=== PATIENT | female | born 1975 | race Caucasian/White ===

== ENCOUNTER → 2023-07-11 11:29 | Outpatient (REF) | payer OTHER, SELFPAY | LOC: WDC 11:29 | PROVIDERS: ATTENDING PHYSICIAN Obstetrics & Gynecology; FAMILY PHYSICIAN Family Medicine | DX: Z12.31 Encounter for screening mammogram for malignant neoplasm of breast (principal) | CPT/HCPCS: 77063; 77067 ==

== ENCOUNTER 2023-07-30 13:56 | Emergency (ER) | payer OTHER, SELFPAY ==
[2023-07-30 14:01] VITALS: BP 159/118
--- NOTE | 2023-07-30 14:03 | ED.PDOC.TR ---
ED Provider Triage
-
Patient seen by provider in Triage?: Seen in Triage
Pt was assessed in triage as a rapid assessment to expedite ongoing care with expectation of further assessment.
48-year-old female presenting to the emergency department with concerns of low back pain with a tingling in intermittent numb sensation throughout the low back without significant radiation no changes in urination or bowel movements. No similar
symptoms in the past no specific injuries. Here symptoms not reproducible no CVA tenderness no abdominal pain patient generally well-appearing does seem to be very careful with her movements protecting her back. Seems to be most likely mechanical
type back pain has not had imaging of her back in the past x-ray was ordered as well as urinalysis.
[2023-07-30 15:09] LABS: Urine Albumin Negative (Neg - Trace); Urine Bilirubin Negative (Negative); Urine Character Clear (Clear); Urine Color Yellow; Urine Glucose Negative (Negative); Urine Ketone Negative (Negative); Urine Leukocyte Negative (Negative); Urine Nitrite Negative (Negative); Urine Occult Blood Negative (Negative); Urine Specific Gravity 1.015 (<1.030); Urine Urobilinogen Negative (Neg - 1+)
[2023-07-30 15:13] LABS: HCG, Urine Qualitative Screen Negative
--- NOTE | 2023-07-30 18:24 | ED.GENMED ---
History of Present Illness
General
Chief Complaint: Back Pain
Source: patient
Exam Limitations: none
Time Seen by Provider: 07/30/23 17:59
Travel History
Have you had any contact with someone who has COVID-19?: No
Do you have any symptoms of coronavirus? Fever > 100 degrees, chills, cough, shortness of breath, sore throat, loss of taste or smell, muscle aches, or headache?: No
History of Present Illness
History of Present Illness:
This is a 48 year old female that comes in with multiple complaints. States that about a week ago she started pins and needles in the mid and lower back. States that if she stands to long it gets worse and she gets hot. If she sits to long the pain
is again also worse. States that she has felt SOB, has upper abd pain for a couple of weeks and a headache. Denies any falls or injury. Denies any fever, chills, chest pain, nausea, vomiting, diarrhea, dizziness, urinary burning.
Past History
Past History
ED Past Medical History: HTN and Psychiatric (Anxiety)
ED Past Surgical History: Cholecystectomy and Other (Hernia repair. Breast implants)
Social History
Tobacco: Non-smoker
Alcohol: Occasional
Personal:
Living: with family
Review of Systems
Review of Systems
All Other Systems: ROS reviewed and negative except as documented in HPI and ROS
Constitutional: Reports no symptoms; Denies fever or chills
EENT: Reports no symptoms
Respiratory: Reports trouble breathing; Denies cough
Cardiac: Reports no symptoms; Denies chest pain
ABD/GI: Reports abdominal pain; Denies nausea, vomiting or diarrhea
: Reports no symptoms; Denies dysuria, frequency or urgency
Musculoskeletal: Reports no symptoms
Skin: Reports no symptoms
Neurological: Reports headache; Denies dizzy
Psychiatric: Reports no symptoms
Phy Exam
General Physical Exam
General Presentation: no apparent distress
General age: appears stated age
General Skin: warm and dry
General Habitus: normal
General Mental: alert
General Hydration: appears well hydrated
ENT Exam
ENT Exam: TM's normal, pharynx normal and neck supple
Eye Exam
Eye Exam: EOMI
Cardiovascular Exam
Cardiovascular Exam: regular rate/rhythm, no edema, no murmur and normal peripheral pulses
Pulmonary Exam
Pulmonary Exam: lungs clear, no respiratory distress, no rales, chest non tender, no crackles, no rhonchi, no wheezing and no cough
Gastrointestinal Exam
Gastrointestinal Exam: normal bowel sounds, soft, no organomegaly, no pulsatile mass, non distended and tender (Right upper and slight lower abd tenderness with palpation)
Musculoskeletal Exam
Musculoskeletal Exam: full ROM, no edema and other (Negative for any cervical neck tenderness. Negative for spinal tenderness with right lateral discomofort. Negative with straight leg raise, going up on her toes or bending forward. Discomfort with
turning to the sided into the right hip. )
Skin Exam
Skin Exam: normal color, warm/dry, no rash and no petechia
Psychiatric Exam
Psychiatric Exam: normal mood/affect
Course
Orders/Labs/Results
Orders:
Orders
07/30/23 14:06
Lumbar Spine, 2 or 3 View [CR Lumbar Spine 2 Or 3 Views] Urgent
Comment:
Reason For Exam: low back pain
07/30/23 14:07
Test Result ONCE
07/30/23 15:02
HCG, Urine Qualitative Screen Urgent
Date Specimen was Collected: 07/30/23
Time Specimen was Collected: 15:01
Urinalysis Reflex To Culture Urgent
Date Specimen was Collected: 07/30/23
Time Specimen was Collected: 15:02
07/30/23 18:22
US Abdomen Complete/Upper Urgent
Comment:
Reason For Exam: Right upper abd tenderness
07/30/23 18:23
Electrocardiogram (*1) Urgent
Reason for Study: Shortness of Breath
EKG- Treatment ONCE
CR Chest - 2 Views Urgent
Comment:
Reason For Exam: SOB
07/30/23 18:27
Acetaminophen [Tylenol] 1,000 mg PO NOW STA
Dexamethasone Sod Phosphate [Decadron] 20 mg IV NOW STA
Ketorolac [Toradol] 30 mg IV NOW STA
07/30/23 19:27
Complete Blood Count/With Diff Urgent
Comprehensive Metabolic Panel Urgent
D-Dimer Urgent
07/30/23 19:27
07/30/23 19:27
Urine negative for infection, HCG negative, Labs unremarkable. D-dimer <0.27
Vital Signs
Initial and Last Documented VS:
Initial Vital Signs
Temp Pulse Resp BP Pulse Ox
98.5 F 90 18 159/118 96
07/30/23 14:01 07/30/23 14:01 07/30/23 14:01 07/30/23 14:01 07/30/23 14:01
Last Documented Vital Signs
Temp Pulse Resp BP Pulse Ox
98.5 F 90 18 159/118 96
07/30/23 14:01 07/30/23 14:01 07/30/23 14:01 07/30/23 14:01 07/30/23 14:01
MDM/Problems Addressed
Differential Diagnosis Includes:
Gallbladder disease, Musculoskeletal pain
MDM/Problems Addressed:
This is a 48 year old female that comes in with multiple complaints. States that she has right mid and lower back pain and across the lower back, SOB, abd discomfort and a headache.
Will get labs. X-rays, Urine, Medicate for pain .
Back into see patient. Explained that her blood work is normal along with her chest- X-ray and US. D-dimer is negative. There is some Degenerative changes in the low back. Patient can use Tylenol and Ibuprofen for pain. Heat or ice to the low back
and follow up with the family doctor. Patient to return with any concerns.
Chronic conditions affecting care:
NA
Acute Exacerbation and/or Progression of Chronic Illness:
NA
*Radiology
Radiology exam reviewed: radiology read reviewed (Lumbar spine-Mild L1/L2 and L5/S1 degenerative disc disease. Stable. Chest-Unremarkable exam US-Prior cholecystectomy. Nonvisualization of the pancreatic body and tail. Otherwise unremarkable
exma. )
*Pulse Oximetry
Patient hypoxic: no
*EKG
Interpreted by ED Provider?: Yes
Heart Rate: 56
Rate: normal
Rhythm: sinus
Bandana: normal axis
Interval: normal interval
QRS Pattern: normal QRS
Ischemia: no ischemia
*Rail Specialist Interpretation
Rate: Rail Specialist- N/A
*Critical Care Note
Total Time (30-74mins, 75-104mins- exclusive of procedures): Not Applicable
ED Attending Note
-
Portions of this chart may have been created with voice recognition software.� Occasional wrong word or��sound alike� substitutions may have occurred due to the inherent limitations of voice recognition software.
Discharge Plan
Departure
Patient Disposition: Home (Routine Discharge)
Date of Disposition: 07/30/23
Time of Disposition: 22:40
Patient with high blood pressure during this ER visit?: Yes
Condition: Good
Covid-19: Not Applicable
Discharge Problem:
Low back pain
Instructions: Low Back Pain (DC), BLOOD PRESSURE
Prescriptions:
No Action
citalopram 10 MG tablet
10 mg PO DAILY
lisinopril 10 MG tablet
10 mg PO DAILY
norethindrone acetate [Aygestin] 5 mg tablet
5 mg PO BID 10 Days Qty: 20 0RF
Referrals:
Sonia Dove DO [Family Provider] - Call in 1-3 days for appt
Activity Restrictions/Additional Instructions:
As discussed, your blood work is normal along with your chest-X-ray and Ultrasound. Your urine is negative for infection. There is some degenerative changes in the low back. Please follow up with the family doctor. You ca use Tylenol or Ibuprofen
for pain. Heat or ice to the low back. IF YOU HAVE ANY OTHER CONCERNS PLEASE RETURN TO THE EMERGENCY ROOM.
Interventions
Interventions:
*Risk Screen - Suicide Last Done: 07/30/23 19:10
*General Assessment Last Done: 07/30/23 19:10
*Neglect/Abuse Screening Last Done: 07/30/23 19:10
ED- Fall Risk Assessment Last Done: 07/30/23 19:10
*ED COVID-19 Vaccine History Last Done: 07/30/23 19:10
ED-Musculoskeletal Assessment Last Done: 07/30/23 19:10
Discharge Date and Time
Print Language: BOTS[place]NA[place]
--- NOTE | 2023-07-30 19:18 | EDRN ---
nature. Pt also has constipation issues. Pt has no nausea, vomiting or diarrhea. Pt states moves freely.
[2023-07-30] MEDS: TYLENOL 1000 MG PO (19:40)
[2023-07-30] MEDS: TORADOL 30 MG IV (19:41)
[2023-07-30] MEDS: DECADRON 20 MG IV (19:44)
[2023-07-30 19:46] LABS: % Basophils 1.1 % (0-2); % Eosinophils 2.2 % (0-6); % Immature Granulocytes 0.4 % (0-0.5); % Lymphocytes 23.6 % (20.5-51.1); % Monocytes 5.2 % (1.7-9.3); % Neutrophils 67.5 % (42.2-75.2); Absolute Basophils 0.1 10^3/uL (0-0.2); Absolute Eosinophils 0.2 10^3/uL (0-0.7); Absolute Monocytes 0.4 10^3/uL (0.1-0.6); Absolute Neutrophils 5.6 10^3/uL (1.4-6.5); Hematocrit 38.7 % (37.0-47.0); Hemoglobin 13.2 g/dL (12.0-16.0); Mean Corp Hgb Conc. 34.1 g/dL (33.0-37.0); Mean Corpuscular Hgb 29.7 pg (27.0-31.0); Mean Platelet Volume 8.4 fL (7.4-10.4); Nucleated Red Blood Cells % 0 %; Platelet Count 374 10^3/uL (130-400); Red Blood Cell Count 4.45 10^6/uL (4.20-5.40); Red Cell Dist. Width 13.7 % (11.5-14.5); White Blood Cell Count 8.3 10^3/uL (4.8-10.8)
[2023-07-30 19:56] LABS: ALT (SGPT) 14 U/L (0-35); AST (SGOT) 19 U/L (14-36); Albumin 4.4 g/dl (3.5-5.0); Alkaline Phosphatase 65 U/L (38-126); Blood Urea Nitrogen 10 mg/dl (7-17); Calcium 9.9 mg/dl (8.4-10.2); Carbon Dioxide 24 mmol/L (22-30); Chloride 106 mmol/L (98-107); Glucose 97 mg/dl (70-99); Potassium 4.3 mmol/L (3.5-5.1); Sodium 140 mmol/L (135-145); Total Bilirubin 0.5 mg/dl (0.2-1.3); Total Protein 7.1 g/dl (6.3-8.2); eGFR > 60.00
[2023-07-30 20:10] LABS: D-Dimer < 0.27 ug/mlFEU (0.00-0.50)
[2023-07-30 22:50] VITALS: BP 130/89
== END 2023-07-30 22:50 | disposition home or self-care (01) ==
LOC: EMR 13:56
PROVIDERS: Clinical Nurse Specialist Family Health; Physician Assistant; EMERGENCY PHYSICIAN Emergency Medicine; FAMILY PHYSICIAN Family Medicine
DX: M54.50 Low back pain, unspecified (principal); R06.02 Shortness of breath; R51.9 Headache, unspecified; R10.11 Right upper quadrant pain; R20.0 Anesthesia of skin; I10 Essential (primary) hypertension; F41.9 Anxiety disorder, unspecified; M51.37 Other intervertebral disc degeneration, lumbosacral region; Z90.49 Acquired absence of other specified parts of digestive tract
CPT/HCPCS: 99284; 96374; 96375; 71046; 72100; 76700; 80053; 81003; 81025; 85025; 85379; 93005

== ENCOUNTER → 2024-07-09 07:23 | Outpatient (REF) | payer OTHER, SELFPAY | LOC: RAD 07:23 | PROVIDERS: ATTENDING PHYSICIAN Nurse Practitioner Family | DX: M79.604 Pain in right leg (principal); M79.605 Pain in left leg | CPT/HCPCS: 93970 ==

== ENCOUNTER → 2024-07-28 09:07 | Outpatient (REF) | payer OTHER, SELFPAY | LOC: WDC 09:07 | PROVIDERS: ATTENDING PHYSICIAN Nurse Practitioner Family | DX: N63.11 Unspecified lump in the right breast, upper outer quadrant (principal) | CPT/HCPCS: 76642; 77062; 77066 ==

== ENCOUNTER → 2024-12-30 07:55 | Outpatient (REF) | payer OTHER, SELFPAY | LOC: HWRAD 07:55 | PROVIDERS: ATTENDING PHYSICIAN Nurse Practitioner Family | DX: R10.84 Generalized abdominal pain (principal) | CPT/HCPCS: 76700 ==